=== PATIENT | male | born 1980 | race Two or more races ===

== ENCOUNTER → 2020-08-11 15:15 | Outpatient (BNVA) | payer OTHER, SELFPAY | PROVIDERS: Visit Provider Surgery ==

== ENCOUNTER 2020-08-25 09:04 | Day surgery (SDC) | payer OTHER, SELFPAY ==
[2020-08-20 09:46] VITALS: BMI 27.8
--- NOTE | 2020-08-24 10:44 | HO.ANESPROP2 ---
Documented by User: Natalie Medeiros 08/24/20 10:49 HPI - Anesthesia Eval Consult details Narrative: 39yo M for Left Debridement & Excision of Groin and Perineal Area Hidradenitis Suppurativa PMFSH Active Problems Active Problems: All Active Problems (Updated 08/11/20 @ 15:41 by Herbert Michelle MD) Hidradenitis suppurativa (Acute) Past Medical History Medical History Hidradenitis suppurativa Surgical History Surgical History History of axillary surgery Social History Social History Alcohol intake: never Smoking Status: Current every day smoker Advance Directives Information Provided: No Meds Allergies Allergy/AdvReac Type Severity Reaction Status Date / Time No Known Allergies Allergy Verified 08/25/20 09:32 Home Medications Medication Instructions Recorded Confirmed Last Taken Type No Known Home Meds 08/11/20 08/20/20 Unknown History Exam Exam Date and Time: August 24, 2020 1044 Height,Weight and Vital Signs: Height 5 ft 10 in Weight 88 kg Assessment and Plan Assessment Anesthesia Assessment: Chart Reviewed Documented by User: Lissette Chase 08/25/20 11:53 PMFSH Past Medical History Medical History Hidradenitis suppurativa Surgical History Surgical History History of axillary surgery Social History Social History Alcohol intake: never Smoking Status: Current every day smoker Advance Directives Information Provided: No Meds Allergies Allergy/AdvReac Type Severity Reaction Status Date / Time No Known Allergies Allergy Verified 08/25/20 09:32 Home Medications Medication Instructions Recorded Confirmed Last Taken Type No Known Home Meds 08/11/20 08/20/20 Unknown History Exam Airway Mallampati Class: II TM Dist: >3cm Neck ROM: Full Assessment and Plan Assessment Anesthesia Assessment: Anesthesia Plan Discussed and Chart Reviewed Final Anesthetic Review NPO: Yes ASA Class: I Final Preanesthetic Review: No Changes in Pt Med Stat, Meds/Allgs Chart Reviewed, Consent Obtained/Reviewed and Anes Risks/Benef Reviewed Patient Risk: Low Procedure Risk: Low Assessment/Block/Sedation in SS: Assess/Block/Sedation-SS Anesthetic Plan Anesthetic Plan: GA Disposition: Standard PACU
[2020-08-25] VITALS (9 sets, daily range): BP systolic 114–138; BP diastolic 62–94; PULSE 61–80; RESP 16–19; TEMP 36.4–36.8; O2SAT 97–100
[2020-08-25] MEDS: Lactated Ringers 1,000 ML 100 ML IVCONT (10:02)
--- NOTE | 2020-08-25 11:10 | MHC.SHP ---
Pre-Procedural Eval Section B Chief Complaint: Hidradenitis suppurativa Allergies: Allergies Allergy/AdvReac Type Severity Reaction Status Date / Time No Known Allergies Allergy Verified 08/25/20 09:32 Plan I have reviewed the history and physical and performed a pertinent physical examination on my patient. No changes have occurred unless specified.
--- NOTE | 2020-08-25 12:40 | W.PM.OPN ---
Operative Note Operative Note Date of Service: 08/25/20 Narrative: Preop diagnosis: Hidradenitis suppurativa, left perianal and left scrotal area Postop diagnosis: Hidradenitis suppurative left perianal and left scrotal area Procedure: Excision of hidradenitis suppurative left perianal and left scrotal area Surgeon: Herbert Michelle MD The patient is a 39-year-old male who was had a longstanding history of recurrent swelling and drainage in the left perianal area anteriorly scrotum and the indurated areas as noted above were seen. He does have a history of hidradenitis and says he has had excision about 18 years ago when he was much younger. He said he required frequent dressing changes for an open wound at that time. Examination in the office had shown an indurated area in the left perianal region anteriorly with a sinus. A similar air was noted in the scrotal skin on the left are He wanted this removed in view of his frequent pain and swelling and drainage for many years now. He was aware of the risks, benefits and alternatives He was brought to the operating room placed in modified lithotomy position under general anesthesia via laryngeal mask airway. The perianal area as well as the perineal area were prepped and draped in usual sterile fashion. A surgical time-out was done. I then examined the perianal area on the left side anteriorly as well as the left scrotum which showed the indurated areas as described above. I marked the planned line of incisions. I then made an incision on the left perianal area anteriorly around the area of the induration using a blade 15. This was carried down through the full-thickness of the skin and subcutaneous fat with electrocautery. I excised the entire indurated area including all sinuses and diseased appearing subcutaneous tissue. This was sent as specimen with the open area was about 7 cm long and about 3.5 cm wide. There was note of oozing areas which I had to cauterize. Multiple applications of a electro cautery was done because of this bleeding. Eventually was able to achieve hemostasis. I did undermine both sides of the incision to create flaps and allow closure without tension. I then used a nylon 2-0 stitch to reappose the skin and subcutaneous layer, alternating with simple interrupted sutures as well as vertical mattress sutures. I then proceeded to do the excision on the scrotal area. I marked the plan of excision and made an incision in an elliptical fashion around the indurated area using blade 15. This was carried down through the full thickness of the skin and part of subcutaneous layer. I excised the entire indurated area and sinuses with this. I made certain that we were not entering the scrotal sac by staying within the plane of the subcutaneous layer. I excised as much of the indurated areas and the sinuses. The excision area was about 3 cm by about 2 cm. I closed this with multiple nylon 3-0 interrupted sutures. Once hemostasis was ensured I proceeded to apply dressings. The procedure was completed. The patient tolerated well. There were no immediate complications. Initial and final counts of sponges and instruments were correct. Estimated blood loss about 75 cc The patient was extubated without difficulty and transferred to the recovery room with stable vital signs.
--- NOTE | 2020-08-25 12:48 | PM.OP ---
Brief Operative Note Date of Service: 08/25/20 Pre-op diagnosis: Hidradenitis suppurativa, left anterior perianal area and left scrotum Post-op diagnosis: same Procedure: Excision of hidradenitis suppurativa, left anterior perianal area and scrotum Surgeon: Herbert Michelle MD Anesthesia: GLMA Estimated blood loss (mL): 75 Pathology: other (Hidradenitis suppurativa) Condition: stable Disposition: PACU
[2020-08-25] MEDS: fentaNYL citrate/PF 100 MCG/2 ML VIAL 50 MCG IVPUSH (12:51)
[2020-08-25] MEDS: oxyCODONE HCl Immed Release 5 MG TABLET PO (13:09)
== END 2020-08-25 13:57 | disposition home or self-care (01) ==
PROVIDERS: Visit Provider Surgery
PROC: (CPT 11470; principal; 2020-08-25 10:50)
DX: L73.2 Hidradenitis suppurativa (principal); N49.2 Inflammatory disorders of scrotum
CPT/HCPCS: 11470; 11423; 88305; J0131; J0690; J1100; J1885; J2250; J2405; J3010

== ENCOUNTER 2020-09-02 08:32 | Emergency (ER) | payer OTHER, SELFPAY ==
--- NOTE | ~2020-09-02 | CT_ITS ---
EXAMINATION: CT PELVIS WITH CONTRAST CLINICAL INFORMATION: Status post groin abscess drainage, pain. Question new abscess COMPARISON: None TECHNIQUE: Helical scanning was performed with submillimeter collimation through the pelvis with the use of oral contrast and during bolus intravenous injection of 100 mL of Omnipaque 350 intravenous contrast. Sagittal and coronal multiplanar 2-D reconstructions were obtained. This CT examination was performed using dose optimization techniques as appropriate, variously including the following: *Automated exposure control *Adjustment of mA and/or kV according to patient size (this includes techniques or standardized protocols for targeted exams where dose is matched to indication/reason for exam; i.e. extremities or head) *Use of iterative reconstruction technique DLP: 315 mGy-cm FINDINGS: PELVIS: The bowel gas pattern is nonspecific. Appendix is normal. The urinary bladder is nondistended. There is no free air or free fluid. No abnormal pelvic lymph nodes seen. There is no visible abscess or mass seen in the groin. OSSEOUS STRUCTURES: There is no lytic or sclerotic process. CT/CT pelvis w con IMPRESSION: No evidence of abscess or abnormal inguinal lymph node or mass.
--- NOTE | ~2020-09-02 | US_ITS ---
EXAMINATION: US VENOUS ULTRASOUND WITH DOPPLER LOWER EXTREMITY, LEFT CLINICAL INFORMATION: Pain status post surgery COMPARISON: None TECHNIQUE: Ultrasound of the deep veins is performed from the hip to the calf with compression sonography and color and pulse Doppler assessment. Spectral analysis with color-flow imaging is performed. FINDINGS: There is normal venous compression and respiratory variation and augmented flow. The visualized common femoral vein, superficial femoral vein, profunda femoral vein, popliteal vein, and the trifurcation region shows no evidence of deep venous thrombosis. There is no significant popliteal fossa cyst. No popliteal artery aneurysm If the patient's symptoms persist, followup ultrasound in 5 days 7 days might be of value to exclude proximal propagation from a non-visualized calf vein. US/US venous duplex LE LT IMPRESSION: No acute DVT demonstrated in the left lower extremity.
--- NOTE | ~2020-09-02 | US_ITS ---
EXAMINATION: US SCROTUM CLINICAL INFORMATION: Left perianal scrotal hidradenitis. Excision 08/25/2020. COMPARISON: Ultrasound left lower extremity with Doppler 09/02/2020. TECHNIQUE: A sonogram of the scrotum was performed assessing ramirez-scale appearance and color Doppler flow. Spectral Doppler analysis of the arterial and venous flow were performed in the testes bilaterally. FINDINGS: RIGHT: Right testicle measures 4.2 x 2.5 x 2.8 cm, volume 15.4 mL. There is no intratesticular solid mass or abscess. There is a tiny intratesticular cyst under 2 mm. There is normal bilateral symmetric color Doppler and normal low resistance arterial waveform. Normal intratesticular venous flow also demonstrated. No torsion. The right epididymal head is unremarkable other than a tiny cyst only 1 mm. No hydrocele or varicocele. LEFT: Left testicle measures 4.2 x 2.5 x 2.9 cm, volume 15.9 mL. No focal testicular parenchymal lesions are visualized. There is normal bilateral symmetric color Doppler and normal low resistance arterial waveform. Normal intratesticular venous flow also demonstrated. No torsion. The left epididymal head is unremarkable other than a tiny cyst only 5 x 3 mm. No hydrocele or varicocele. US/US scrotum doppler IMPRESSION: 1. No testicular mass, abscess, or hydrocele. No torsion. 2. Small bilateral epididymal head cysts, left 5 mm, right [address] pelvis with contrast also performed, described in separate report.
--- NOTE | ~2020-09-02 | US_ITS ---
US SCROTUM CLINICAL INFORMATION: Left perianal scrotal hidradenitis. Excision 08/25/2020. COMPARISON: Ultrasound left lower extremity with Doppler 09/02/2020. TECHNIQUE: A sonogram of the scrotum was performed assessing ramirez-scale appearance and color Doppler flow. Spectral Doppler analysis of the arterial and venous flow were performed in the testes bilaterally. FINDINGS: RIGHT: Right testicle measures 4.2 x 2.5 x 2.8 cm, volume 15.4 mL. There is no intratesticular solid mass or abscess. There is a tiny intratesticular cyst under 2 mm. There is normal bilateral symmetric color Doppler and normal low resistance arterial waveform. Normal intratesticular venous flow also demonstrated. No torsion. The right epididymal head is unremarkable other than a tiny cyst only 1 mm. No hydrocele or varicocele. LEFT: Left testicle measures 4.2 x 2.5 x 2.9 cm, volume 15.9 mL. No focal testicular parenchymal lesions are visualized. There is normal bilateral symmetric color Doppler and normal low resistance arterial waveform. Normal intratesticular venous flow also demonstrated. No torsion. The left epididymal head is unremarkable other than a tiny cyst only 5 x 3 mm. No hydrocele or varicocele. US/US scrotum IMPRESSION: 1. No testicular mass, abscess, or hydrocele. No torsion. 2. Small bilateral epididymal head cysts, left 5 mm, right [address] pelvis with contrast also performed, described in separate report.
[2020-09-02 08:51] VITALS: BP 128/86; PULSE 80; RESP 16; TEMP 36.8; O2SAT 98; BMI 28.0
--- NOTE | 2020-09-02 09:56 | ED_ITS ---
HPI - General Adult General Chief complaint: Wound/Laceration Stated complaint: wound check Time Seen by Provider: 09/02/20 09:41 Source: patient Mode of arrival: ambulatory Limitations: no limitations History of Present Illness HPI narrative: Patient presents to ED for severe pain at site of surgery. Patient states he had surgery last week to drain abscess in his groin and now area of sutures ( left groin/perineum) is very tender to palpation. Patient states no relief with Motrin or Tylenol. Patient states not able to take oxycodone due to it making him hallucinate. Patient denies any recent trauma to the groin area. Related Data Previous Rx's Medication Instructions Recorded ibuprofen 600 mg PO Q6H PRN #30 tab 08/25/20 ibuprofen 600 mg PO Q6H PRN #30 tab 08/25/20 oxycodone-acetaminophen [Percocet] 1 - 2 tab PO Q4-6H PRN #30 tab 08/25/20 oxycodone-acetaminophen [Percocet] 1 - 2 tab PO Q4-6H PRN #30 tab 08/25/20 ketorolac 10 mg PO Q6H PRN 5 Days #20 tab 09/02/20 Allergies Allergy/AdvReac Type Severity Reaction Status Date / Time No Known Allergies Allergy Verified 08/25/20 09:32 Review of Systems Review of Systems: Yes all other systems are reviewed and are negative Constitutional: Constitutional: Reports as per HPI and Reports no additional constitutional complaints Eyes: Eyes: Reports as per HPI and Reports no additional eye complaints ENT: Reports system reviewed and no additional complaints, except as documented and Reports as per HPI Cardiovascular: Cardiovascular: Reports as per HPI and Reports no additional cardiovascular complaints Respiratory: Respiratory: Reports as per HPI and Reports no additional respiratory complaints Gastrointestinal: Gastrointestinal: Reports no additional gastrointestinal complaints Genitourinary: Genitourinary: Reports no additional male genitourinary complaints and Reports as per HPI Musculoskeletal: Musculoskeletal: Reports no additional musculoskeletal complaints and Reports as per HPI Comments: Left groin pain at site of ness rgery Neurologic: Reports system reviewed and no additional complaints, except as documented and Reports as per HPI Psychiatric: Psychiatric: Reports no additional psychiatric complaints and Reports as per HPI [facility] Past Medical History Medical History Hidradenitis suppurativa Surgical History History of axillary surgery Social History Social History Alcohol intake: never Smoking Status: Current every day smoker Advance Directives: Yes Advance Directives Information Provided: Yes Advance Directives on File: No Physical Exam Vital Signs: Vital Signs: Last Vital Signs Temp 98.2 F 09/02/20 08:51 Pulse 80 09/02/20 08:51 Resp 16 09/02/20 08:51 BP 128/86 09/02/20 08:51 Pulse Ox 98 09/02/20 08:51 Body Mass Index 28.0 Const: General: cooperative, healthy appearing, comfortable, no acute distress, well developed, alert, awake and acute distress Orientation/consc iousness: patient oriented x3 HENMT: Head: Yes normal to inspection, Yes No palpable skull fracture present, Yes normocephalic and Yes atraumatic Eyes: General: appearance normal, both eyes and all related structures Neck: Neck: Yes normal visual inspection, Yes full ROM, Yes no lymphadenopathy, Yes no meningeal signs, Yes trachea midline, Yes supple and No tender Chest: Chest palpation & inspection: normal inspection of the chest and normal palpation of entire chest wall Resp: Effort & Inspection: normal respiratory effort and able to speak in com plete sentences Auscultation: clear to auscultation bilaterally Cardio: Jugular venous distension: no JVD Heart sounds: S1 normal heart sound present and S2 normal heart sound present GI: Other: Left groin: Patient has sutures left groin/perineal incision with sutures. Wound area negative for any erythema, pus discharge, or foul odor. Positive for severe tenderness. Negative for tenderness of left testicle. Negative for swelling of left testicle. Negative for erythema around left testicle. Positive for tenderness on palpation of anterior medial thigh near left perineal area. Left lower extremity negative for swelling. Inspection: Yes normal to inspection and No abdominal wall ecchymosis Palpation (GI): Soft to palpation, not firm, nontender, no guarding and not rigid : General: No CVA tenderness and Yes no CVA tenderness Scrotum: scrotum normal, no ecchymosis, not edematous, not erythematous, no masses and no scrotal swelling Testes: Testes normal, testicular lie normal, tesicle present, no testicular mass, no testicular swelling and no testicular tenderness Back/Spine/Pelvis: Back: no CVA tenderness, No CVA tenderness and No back tenderness Skin: General skin exam: no rashes or lesions noted and elasticity normal Neuro: General: patient oriented x3, no meningeal signs and CN's II-XI intact bilaterally Cranial nerves: Yes CN's II-XII intact bilaterally Extrem: General: Yes normal to inspection and Yes full ROM Psych: Appearance: grossly normal, well kempt and not disheveled Course Course Course Narrative: Wound area does not look infected. Patient chart was reviewed and shows that he had hidradenitis suppurative drainage with sinus tracts. Due to patient having severe pain in the area will do repeat CT scan to the there is a new trach abscess drainage. Due to anterior thigh tenderness to palpation status post surgery will do ultrasound rule out DVT. Labs ordered Reevaluation(s) Reevaluation #1: Patient's left lower extremity ultrasound negative for DVT. Scrotum ultrasound negative for abscess, torsion, or perforation. CT scan of the pelvis negative for any new abscess, perforation, swollen lymph node, or free air. Patient just need pain control. Wound negative for signs of wound infection. There is no redness, no pus discharge, no foul odor. Patient states IV Toradol helped so patient will be discharged with Toradol p.o.. Patient informed to follow-up with the Dr. Michelle. Medical Decision Making [facility] Narrative Medical decision making narrative: Wound check Lab Data Result diagrams: 09/02/20 09:58 09/02/20 09:58 Labs: Lab Results 09/02/20 09/02/20 09/02/20 Range/Units 09:58 09:58 09:58 WBC 9.2 (4.8-10.8) X10*3/uL RBC 4.27 L (4.60-5.80) X10*6/uL Hgb 13.1 L (14.0-18.0) g/dl Hct 39.5 L (42-52) % MCV 92.5 (80-98) fL MCH 30.7 (27.0-33.0) pg MCHC 33.2 (31.0-36.0) g/dl RDW 12.8 (11.0-16.0) % Plt Count 200 (160-400) X10*3/uL MPV 9.2 L (9.4-12.4) fL Immature Gran % (Auto) 0.2 (0.0-0.4) % Neut % (Auto) 64.4 (45-73) % Lymph % (Auto) 24.9 (20-40) % Price % (Auto) 7.0 (2-11) % Eos % (Auto) 3.1 (0-4) % Baso % (Auto) 0.4 (0-2) % Lymph # (Auto) 2.3 (1.2-4.9) X10*3/uL Price # (Auto) 0.6 (0.1-1.2) X10*3/uL Eos # (Auto) 0.3 (0.0-0.4) X10*3/uL Baso # (Auto) 0.0 (0.0-0.2) X10*3/uL Abs Immat Gran (auto) 0.02 (0.00-0.03) X10*3/uL Absolute Neuts (auto) 5.9 (2.0-8.3) X10*3/uL Absolute Nucleated RBC 0.000 (0.0-0.012) X10*3/uL Nucleated RBC % (auto) 0.0 (0.0-0.2) /100WBC PT 12.6 (10.8-13.0) SEC INR 1.1 (0.9-1.1) APTT 34.6 (24.1-38.0) SEC Sodium 137 (135-145) mmol/L Potassium 4.5 (3.3-5.1) mmol/L Chloride 108 (96-108) mmol/L Carbon Dioxide 24 (22-29) mmol/L Anion Gap 10 L (12-20) BUN 14 (9-16) mg/dL Creatinine 0.81 (0.5-1.4) mg/dL Estim Creat Clear Calc 138.5 Estimated GFR > 60 Random Glucose 93 (60-115) mg/dL Calcium 8.9 (8.4-10.2) mg/dL Total Bilirubin 0.5 (0.0-1.0) mg/dL AST 13 (5-37) U/L ALT 20 (0-40) U/L Alkaline Phosphatase 98 (39-117) U/L Total Protein 6.2 L (6.5-8.0) g/dL Albumin 3.8 (3.5-5.0) g/dL Discharge Plan Discharge Clinical Impression: Encounter for post surgical wound check Patient Disposition: Home, Self-Care Instructions: Normal Exam (ED), Hidradenitis Suppurativa (ED) Additional Instructions: Return to the ED immediately for pus discharge, foul odor, redness, fever, chills, swelling of left lower extremity, testicular pain, chest pain, shortness of breath, or any other concerning symptoms. Your leg ultrasound came back negative for blood clot. Testicular ultrasound negative for abscess, torsion, o r perforation. CT scan of pelvis negative for any new abscess, swollen lymph node, or perforation. Prescriptions: New ketorolac 10 mg tablet 10 mg PO Q6H PRN (Reason: pain) 5 Days Qty: 20 RF: 0 No Action oxycodone-acetaminophen [Percocet] 5-325 mg tablet 1 - 2 tab PO Q4-6H PRN (Reason: pain) Qty: 30 RF: 0 ibuprofen 600 mg tablet 600 mg PO Q6H PRN (Reason: pain) Qty: 30 RF: 0 oxycodone-acetaminophen [Percocet] 5-325 mg tablet 1 - 2 tab PO Q4-6H PRN (Reason: pain) Qty: 30 RF: 0 ibuprofen 600 mg tablet 600 mg PO Q6H PRN (Reason: pain) Qty: 30 RF: 0 Referrals: Herbert Michelle MD [Physician] - 2 days (Status post hidraenitis suppurativa surgery. Presented to the ED with pain. Ultrasound of leg negative for blood clot. Testicular ultrasound negative for abscess, perforation, or torsion. CT scan of pelvis negative for any new abscess collection, perforation, or swollen lymph nodes.) Stand Alone Forms: Work/School Release Interventions: ED Discharge Assessment Last Done: 09/02/20 12:53 Discharge Date/Time: 09/02/20 12:54 Print Language: Slovak
[2020-09-02] MEDS: Ketorolac Tromethamine 30 MG/ML VIAL IVPUSH (10:02)
[2020-09-02] MEDS: 0.9 % Sodium Chloride 1,000 ML 999 ML IV (10:03)
[2020-09-02 10:04] LABS: MANUAL DIFF FLAG NO
[2020-09-02 10:06] LABS: Basophils Percent Auto 0.4 % (0-2); Eosinophils Absolute Auto 0.3 X10*3/uL (0.0-0.4); Eosinophils Percent Auto 3.1 % (0-4); Hematocrit 39.5 % (42-52); Hemoglobin 13.1 g/dl (14.0-18.0); Imm Gran Abs Auto 0.02 X10*3/uL (0.00-0.03); Imm Gran Pct Auto 0.2 % (0.0-0.4); Lymphocytes Absolute Auto 2.3 X10*3/uL (1.2-4.9); Lymphocytes Percent Auto 24.9 % (20-40); Mean Corpuscular HGB Conc 33.2 g/dl (31.0-36.0); Mean Corpuscular Hemoglobin 30.7 pg (27.0-33.0); Mean Corpuscular Volume 92.5 fL (80-98); Mean Platelet Volume 9.2 fL (9.4-12.4); Monocytes Absolute Auto 0.6 X10*3/uL (0.1-1.2); Neutrophils Absolute Auto 5.9 X10*3/uL (2.0-8.3); Neutrophils Percent Auto 64.4 % (45-73); Platelet Count 200 X10*3/uL (160-400); Red Blood Count 4.27 X10*6/uL (4.60-5.80); Red Cell Distribution Width 12.8 % (11.0-16.0); White Blood Count 9.2 X10*3/uL (4.8-10.8)
[2020-09-02 10:11] LABS: INTERNATIONAL NORM RATIO 1.1 (0.9-1.1); Prothrombin Time 12.6 SEC (10.8-13.0)
[2020-09-02 10:13] LABS: Partial Thromboplastin Time 34.6 SEC (24.1-38.0)
--- NOTE | 2020-09-02 10:26 | PC.NURSE ---
IV ESTABLISHED, BLOOD LABS OBTAINED AND SENT, MEDICATED PER EMAR, TAKEN TO US VIA STRETCHER.
[2020-09-02 10:35] LABS: Alanine Aminotransferase 20 U/L (0-40); Albumin Level 3.8 g/dL (3.5-5.0); Alkaline Phosphatase 98 U/L (39-117); Anion Gap 10 (12-20); Aspartate Amino Transferase 13 U/L (5-37); Bilirubin Total 0.5 mg/dL (0.0-1.0); Blood Urea Nitrogen 14 mg/dL (9-16); Calcium 8.9 mg/dL (8.4-10.2); Carbon Dioxide 24 mmol/L (22-29); Chloride 108 mmol/L (96-108); Creatinine Clr Calc Pharmacy 138.5; Estimated Glomerular Filt Rate > 60; Glucose Random 93 mg/dL (60-115); Potassium 4.5 mmol/L (3.3-5.1); Sodium 137 mmol/L (135-145); Total Protein 6.2 g/dL (6.5-8.0)
--- NOTE | 2020-09-02 11:09 | PC.NURSE ---
PT STS PAIN IS MUCH BETTER, STS WHATEVER YOU GAVE ME, I WANT TO GO HOME WITH .
[2020-09-02] MEDS: iohexoL 350 MG/ML 100 ML INFUS..BTL 85 ML IV (11:35)
== END 2020-09-02 12:54 | disposition home or self-care (01) ==
PROVIDERS: Physician Assistant; Emergency Provider Emergency Medicine
DX: L73.2 Hidradenitis suppurativa (principal); R60.0 Localized edema; Z48.00 Encounter for change or removal of nonsurgical wound dressing; F17.200 Nicotine dependence, unspecified, uncomplicated; Z71.6 Tobacco abuse counseling
CPT/HCPCS: 36415; 72193; 76870; 80053; 85025; 85610; 85730; 93971; 93975; 96365; 96372; 96375; 99284; J1885; Q9967

== ENCOUNTER → 2020-09-09 09:57 | Outpatient (BNVA) | payer OTHER, SELFPAY | PROVIDERS: Visit Provider Surgery ==

== ENCOUNTER → 2020-10-08 09:57 | Outpatient (BNVA) | payer OTHER, SELFPAY | PROVIDERS: Visit Provider Surgery ==

== ENCOUNTER → 2021-02-17 15:38 | Outpatient (BNVA) | payer OTHER, SELFPAY | PROVIDERS: Visit Provider Surgery ==

== ENCOUNTER 2021-03-02 10:56 | Day surgery (SDC) | payer OTHER, SELFPAY ==
--- NOTE | 2021-03-01 11:44 | HO.ANESPROP2 ---
Documented by User: Natalie Medeiros NP 03/01/21 11:46 HPI - Anesthesia Eval Consult details Narrative: 40yo M for Left Excision of Axillary Hidradenitis Suppurativa s/p same with GA-LMA 5 PMFSH Active Problems Active Problems: All Active Problems (Updated 09/03/20 @ 00:00 by Chet Gupta) Hidradenitis suppurativa (Acute) Past Medical History Medical History (Updated 03/02/21 @ 11:07 by Savannah French RN) Hidradenitis suppurativa Migraine Surgical History Surgical History History of axillary surgery Hx of surgical procedure Social History Social History Alcohol intake: never Patient Tobacco Use Status: Current everyday Tobacco user Tobacco use type: Cigarette Cigarettes Per Day: 5 Meds Allergies Allergy/AdvReac Type Severity Reaction Status Date / Time No Known Allergies Allergy Verified 03/02/21 11:07 Exam Exam Date and Time: March 01, 2021 1144 Pertinent Lab Results Pertinent Lab Results: Laboratory Tests 09/02/20 09/02/20 09:58 09:58 WBC 9.2 Hgb 13.1 L Hct 39.5 L Plt Count 200 Sodium 137 Potassium 4.5 Chloride 108 Carbon Dioxide 24 BUN 14 Creatinine 0.81 Assessment and Plan Assessment Anesthesia Assessment: Chart Reviewed Documented by User: Camron Duran MD 03/02/21 17:19 [facility] Past Medical History Medical History (Updated 03/02/21 @ 11:07 by Savannah French RN) Hidradenitis suppurativa Migraine Family History Family history of problems with anesthesia: No Surgical History Surgical History History of axillary surgery Hx of surgical procedure History of Problems with Anesthesia: No Social History Social History Alcohol intake: never Patient Tobacco Use Status: Current everyday Tobacco user Tobacco use type: Cigarette Cigarettes Per Day: 5 Meds Allergies Allergy/AdvReac Type Severity Reaction Status Date / Time No Known Allergies Allergy Verified 03/02/21 11:07 Exam Airway Mallampati Class: II TM Dist: >3cm Neck ROM: Full Loose/Missing/Broken Teeth: No Assessment and Plan Assessment Anesthesia Assessment: Anesthesia Plan Discussed Final Anesthetic Review Family History of Problems with Anesthesia: No History of Problems with Anesthesia: No NPO: Yes ASA Class: II Final Preanesthetic Review: No Changes in Pt Med Stat, Meds/Allgs Chart Reviewed, Consent Obtained/Reviewed and Anes Risks/Benef Reviewed Patient Risk: Low Procedure Risk: Low Anesthetic Plan Anesthetic Plan: GA Disposition: Standard PACU
[2021-03-02] VITALS (8 sets, daily range): BP systolic 110–132; BP diastolic 66–83; PULSE 67–87; RESP 16; TEMP 36.1–36.7; O2SAT 96–97; BMI 27.8
[2021-03-02] MEDS: Lactated Ringers 1,000 ML 100 ML IVCONT (11:32)
--- NOTE | 2021-03-02 13:36 | MHC.SHP ---
Pre-Procedural Eval Section A Date of Service: 03/02/21 Section B Chief Complaint: Hidradenitis suppurativa Allergies: Allergies Allergy/AdvReac Type Severity Reaction Status Date / Time No Known Allergies Allergy Verified 03/02/21 11:07 Plan I have reviewed the history and physical and performed a pertinent physical examination on my patient. No changes have occurred unless specified.
--- NOTE | 2021-03-02 14:19 | P.OP_ITS ---
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 This was consistent with active hidradenitis suppurativa. He had previously undergone excision of hidradenitis from the left groin as well in the past He wanted to proceed with excision of this disease tissue on the left axilla. He understood the technique as well as the risks, benefits, and alternatives. He was brought to the operating room placed supine with the left arm abducted to expose the left axilla. The left axilla was prepped and draped in usual sterile fashion. He was placed in general anesthesia via laryngeal mask airway. I infiltrated the planned line of incision using lidocaine 1%. The area of active hidradenitis on left axilla was noted with multiple sinuses that appeared to be interconnecting, and induration. The diseased area of was about 9 cm long by about 3 cm wide. I then made an incision using blade 15 around the area of induration elliptically. I then deepened this incision using a cautery. I then proceeded to dissect around this area of induration in the subcutaneous layer making sure that we were including soft tissue. I continued to dissect all of the indurated tissue, along with interconnecting sinuses with electrocautery. I sent this specimen for pathology. The area of excision was about 9 cm long by 4 cm wide. I copiously irrigated. I cauterized oozing areas for hemostasis. Once hemostasis was ensured, I reapposed the subcutaneous layer with Dexon 3-0 interrupted sutures. Skin closure was achieved with nylon 3-0 simple interrupted sutures along with vertical mattress sutures as well. The area was then infiltrated with Marcaine 0.5% for postop analgesia and the procedure was completed The patient tolerated procedure well. There were no complication noted. Initial and final counts of sponges and instruments were correct. Estimated blood loss was about 15 cc The patient was extubated without difficulty and transferred to the recovery room with stable vital signs.
== END 2021-03-02 15:57 | disposition home or self-care (01) ==
PROVIDERS: Visit Provider Surgery
PROC: (CPT 11450; principal; 2021-03-02 12:40)
DX: L73.2 Hidradenitis suppurativa (principal); Z79.899 Other long term (current) drug therapy
CPT/HCPCS: 11450; 88305; J0690; J1100; J1170; J2250; J2405; J3010

== ENCOUNTER 2022-01-14 09:31 | Outpatient (REF) | payer OTHER, SELFPAY ==
[2022-01-14 10:45] LABS: Hemoglobin 14.5 g/dl (14.0-18.0); Mean Corpuscular HGB Conc 33.7 g/dl (31.0-36.0); Mean Corpuscular Hemoglobin 30.7 pg (27.0-33.0); Mean Corpuscular Volume 90.9 fL (80.0-98.0); Mean Platelet Volume 9.5 fL (9.4-12.4); Platelet Count 216 X10*3/uL (160-400); Red Blood Count 4.73 X10*6/uL (4.60-5.80); Red Cell Distribution Width 13.3 % (11.0-16.0); White Blood Count 8.6 X10*3/uL (4.8-10.8)
[2022-01-14 11:16] LABS: Alanine Aminotransferase 23 U/L (0-40); Albumin Level 4.1 g/dL (3.5-5.0); Alkaline Phosphatase 120 U/L (39-117); Anion Gap 13 (12-20); Aspartate Amino Transferase 15 U/L (5-37); Bilirubin Total 0.5 mg/dL (0.0-1.0); Blood Urea Nitrogen 14 mg/dL (9-16); Calcium 8.7 mg/dL (8.4-10.2); Carbon Dioxide 24 mmol/L (22-29); Chloride 107 mmol/L (96-108); Cholesterol 220 mg/dL; Estimated Glomerular Filt Rate > 60; Glucose Random 93 mg/dL (60-115); HDL Cholesterol 24 mg/dL; LDL Cholesterol Calculated 165 mg/dl; Potassium 4.3 mmol/L (3.3-5.1); Sodium 140 mmol/L (135-145); Total Protein 6.8 g/dL (6.5-8.0); Triglycerides 159 mg/dL
[2022-01-14 11:27] LABS: Prostate Specific Antigen 0.53 ng/mL (<0.05-4.0); Thyroid Stimulating Hormone 1.13 uIU/mL (0.32-4.0); Vitamin D 25-OH Total 17.1 ng/mL (>30)
[2022-01-20 23:47] LABS: Estradiol Free 0.62 pg/mL; Estradiol, Ultrasensitive 29 pg/mL (< OR = 29)
[2022-01-21 08:42] LABS: Testosterone, Total 478 ng/dL (250-1100)
== END 2022-01-14 09:32 | disposition home or self-care (01) ==
LOC: HO.LAB 09:31
PROVIDERS: Visit Provider Preventive Medicine Preventive Medicine/Occupational Environmental Medicine
DX: Z12.5 Encounter for screening for malignant neoplasm of prostate (principal); E29.1 Testicular hypofunction; N40.1 Benign prostatic hyperplasia with lower urinary tract symptoms; E55.9 Vitamin D deficiency, unspecified
CPT/HCPCS: 80053; 80061; 82306; 82670; 82681; 84153; 84402; 84403; 84443; 85027

== ENCOUNTER 2022-10-03 17:05 | Outpatient (AMB) | payer OTHER, SELFPAY ==
[2022-10-03 17:07] VITALS: BP 116/68; PULSE 77; O2SAT 98
--- NOTE | 2022-10-03 17:07 | A.OFFPC_ITS ---
Vital Signs 10/03/22 17:07 Height 5 ft 10 in Weight 209 lb 6 oz BMI 30.0 BP 116/68 Blood Pressure Location Rt radial Position Sitting Pulse 77 Pulse Source Pulse Oximeter Pulse Oximetry (%) 98 Oxygen Delivery Method Room Air Intake Visit Reasons: hyperlipidemia, hidradenitis Intake Note: Patient is here to follow up hyperlipidemia and hidradenitis. 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 Accompanied by: Self / Same As Patient Allergies No Known Allergies Allergy (Verified 04/12/23 17:42) Medication List - Last Reconciled 10/03/22 by Tristan Hurtado MD betamethasone dipropionate 0.05% 1 appl topical DAILY doxycycline hyclate 100 mg PO DAILY Tobacco use date assessed: 10/03/22 HPI hyperlipidemia, hidradenitis HPI Details Patient comes in today for his follow up visit States that he feels okay He denies any headaches or dizziness Denies any chest pains, no SOB No nausea/vomiting, no abdominal pain No change in bowel habits noted He was not able to get his follow up labs done prior to his visit today [facility] Medical History Skin lesions Overweight (BMI 25.0-29.9) Vitamin D deficiency Pure hypercholesterolemia Migraine Hidradenitis suppurativa Surgical History History of surgical removal of skin lesion (~10/19/22) Hx of surgical procedure History of axillary surgery Social History Housing: House Alcohol intake: never Patient Tobacco Use Status: Never used Tobacco e-Cigarette/Vaping Use: Never Used Second Hand Smoke Exposure: No service: No Current occupational status: employed (at [employer]) Current occupational exposures/hazards: No Cognitive needs: No Hearing needs: No Vision needs: No Questionnaire PHQ-9 Over the last 2 weeks, how often have you been bothered by any of the following problems? 1. Little interest or pleasure in doing things: not at all 2. Feeling down, depressed, or hopeless: not at all 3. Trouble falling or staying asleep, or sleeping too much: not at all 4. Feeling tired or having little energy: not at all 5. Poor appetite or overeating: not at all 6. Feeling bad about yourself - or that you are a failure or have let yourself or your family down: not at all 7. Trouble concentrating on things, such as reading the newspaper or watching television: not at all 8. Moving or speaking so slowly that other people could have noticed. Or the opposite - being so fidgety or restless that you have been moving around a lot more than usual: not at all 9. Thoughts that you would be better off or of hurting yourself in some way: not at all Total score: 0 Depression Screening Interpretation: Negative 19594 - PHQ-9 Billing: Yes Source: Developed by Drs. Rohit Patel, Brianna Lr, Rey Givens and colleagues, with an educational justyn from [employer]. Thrive Questionnaire Date Thrive assessed: 10/03/22 I am a: Patient What is your living situation today?: I have a steady place to live Within the past 12 months, did the food you bought not last and you didn't have the money to get more?: Never true Within the past 12 months, did you worry whether your food would run out before you got money to buy more?: Never true Do you have trouble paying for medicines?: No Do you have trouble getting transportation to medical appointments?: No Do you have trouble paying your heating and electricity bill?: No Do you have trouble taking care of your child, family member or friend?: No Do you have trouble with day-to-day activities such as bathing, preparing meals, shopping, managing finances, etc.?: No Are you currently unemployed and looking for a job?: No Are you interested in more education?: No Currently or been in a relationship where the following occur: no concerns reported AUDIT C Alcohol Use Questionnaire (AUDIT-C) 1. How often do you have a drink containing alcohol?: Never Total Score: 0 Score Reviewed/Action Taken: Yes HAILEE-7 AMB Questionnaire HAILEE-7 Date HAILEE - 7 assessed: 10/03/22 Feeling nervous, anxious, or on edge: 0 = Not at all Not being able to stop or control worryin = Not at all Worrying too much about different things: 0 = Not at all Trouble relaxin = Not at all Being so restless that it is hard to sit still: 0 = Not at all Becoming easily annoyed or irritable: 0 = Not at all Feeling afraid as if something awful might happen: 0 = Not at all Total HAILEE-7 score (0-4 normal; 5-9 mild; 10-14 moderate; 15-21 severe): 0 Source: Developed by Drs. Rohit Patel, Brianna Lr, Rey Givens and colleagues, with an educational justyn from [employer]. Review of Systems Const Denies chills, Denies fatigue, Denies fever(s) and Denies headache(s) ENT Denies dysphagia, Denies dizziness, Denies otalgia, Denies headache(s), Denies neck pain, Denies odynophagia and Denies sore throat Card Denies chest pain, Denies palpitations and Denies dyspnea Resp Denies cough and Denies dyspnea GI Denies abdominal pain, Denies constipation, Denies dysphagia, Denies heartburn, Denies diarrhea, Denies nausea, Denies odynophagia and Denies vomiting Denies dysuria, Denies nocturia and Denies urinary frequency Musc Denies neck pain Skin/Breast Denies rash Neuro Denies dizziness and Denies headache(s) Endo Denies fatigue and Denies palpitations Physical exam (Primary Care) Vital Signs: Last Vital Signs Pulse 77 10/03/22 17:07 BP 116/68 10/03/22 17:07 Pulse Ox 98 10/03/22 17:07 Oxygen Delivery Method Room Air 10/03/22 17:07 BMI result Body Mass Index 30.0 Tobacco/Smoking Status: Tobacco use Status Tobacco use date assessed 10/03/22 10/03/22 17:11 Patient Tobacco Use Status Never used Tobacco 10/03/22 17:11 Tobacco use type 09/22/22 22:01 e-Cigarette/Vaping Use Never Used 10/03/22 17:11 PHQ-9: PHQ-9 Score PHQ-9: Total score 0 10/03/22 17:53 Depression Screening Interpretation: Negative Thrive Assessment: Date of Thrive Assessment Date Thrive assessed 10/03/22 10/03/22 17:11 Currently or been in a relationship where the following occur: no concerns reported Const General: no acute distress and alert HENMT Ears: TM's normal bilaterally and EAC's normal Throat: Yes posterior oropharynx normal and Yes tonsils normal (no TP congestion) Neck Neck: Yes no lymphadenopathy and Yes supple Resp Auscultation: clear to auscultation bilaterally, no rales and no wheezes Cardio Rate: regular rate Rhythm: regular rhythm Heart sounds: no murmurs GI Palpation (GI): Soft to palpation, nontender and No hepatosplenomegaly present Skin General skin exam: no rashes or lesions noted Extrem General: Yes no clubbing, cyanosis or edema Assessment and Plan Assessment & Plan (1) Pure hypercholesterolemia: Code(s): E78.00 - Pure hypercholesterolemia, unspecified Plan: Reinforced low cholesterol diet He was not able to get his previously ordered follow up labs done prior to his visit today - have advised him to get these done JANEL as his previous labs done last year revealed (+) elevated cholesterol levels (2) Hidradenitis suppurativa: Code(s): L73.2 - Hidradenitis suppurativa Plan: Patient frequently has recurrence of this issue and required excision of a couple of these lesions about 2 years ago Is currently taking oral Doxycycline 100 mg QD for chronic suppressive Tx (3) Seborrheic dermatitis: Code(s): L21.9 - Seborrheic dermatitis, unspecified Plan: Continue Betamethasone dipropionate 0.05% lotion QD PRN (4) Vitamin D deficiency: Code(s): E55.9 - Vitamin D deficiency, unspecified Plan: Patient is again advised that his Vitamin D level was low on his previous labs and recommend that he start taking OTC Vitamin D3 2000 units QD (5) Overweight (BMI 25.0-29.9): Code(s): E66.3 - Overweight Plan: Reinforced diet/exercise as tolerated/lose weight Plan To return in 6 months for his next annual physical examination Coding Level of Care Code Est Pt Level 3 (81923) Diagnoses Pure hypercholesterolemia E78.00 Hidradenitis suppurativa L73.2 Seborrheic dermatitis L21.9 Vitamin D deficiency E55.9 Overweight (BMI 25.0-29.9) E66.3
== END 2022-10-03 17:58 | disposition home or self-care (01) ==
LOC: HO.HMGH 17:05
PROVIDERS: PCP Internal Medicine; Visit Provider Internal Medicine
DX: E78.00 Pure hypercholesterolemia, unspecified (principal); L73.2 Hidradenitis suppurativa; L21.9 Seborrheic dermatitis, unspecified; E55.9 Vitamin D deficiency, unspecified; E66.3 Overweight
CPT/HCPCS: 99213

== ENCOUNTER → 2022-10-12 10:32 | Outpatient (BNVA) | payer OTHER, SELFPAY | PROVIDERS: PCP Internal Medicine; Visit Provider Surgery ==

== ENCOUNTER 2022-10-19 14:23 | Outpatient (REF) | payer OTHER, SELFPAY | END 2022-10-19 14:24 | disposition home or self-care (01) | LOC: HO.LNP 14:23 | PROVIDERS: PCP Internal Medicine; Referring Provider Internal Medicine; Visit Provider Surgery | DX: L57.0 Actinic keratosis (principal); L81.4 Other melanin hyperpigmentation | CPT/HCPCS: 11401; 11402; 88305 ==

== ENCOUNTER → 2022-11-02 14:28 | Outpatient (BNVA) | payer OTHER, SELFPAY | PROVIDERS: PCP Internal Medicine; Visit Provider Surgery ==

== ENCOUNTER 2023-04-12 16:17 | Outpatient (AMB) | payer OTHER, SELFPAY ==
[2023-04-12 16:20] VITALS: BP 118/72; PULSE 85; O2SAT 97; BMI 29.3
--- NOTE | 2023-04-12 16:20 | A.OFFPC_ITS ---
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 Accompanied by: Self / Same As Patient Allergies No Known Allergies Allergy (Verified 04/12/23 17:42) Medication List - Last Reconciled 04/12/23 by Tristan Hurtado MD betamethasone dipropionate 0.05% 1 appl topical DAILY doxycycline hyclate 100 mg PO DAILY Tobacco use date assessed: 04/12/23 Dental Screening Dental Screen Date: 04/12/23 Did you have a dental visit in the last 12 months?: Yes Did you have a dental problem in the last 6 months where you did not have access to dental care?: No Was dental information given to patient?: Patient has dentist HPI pe HPI Details Patient comes in today for his annual physical examination States that he feels okay He denies any headaches or dizziness Denies any chest pains, no SOB No nausea/vomiting, no abdominal pain No change in bowel habits noted He denies any acute urinary symptoms He's had the previous lesions on his left thigh/groin area and left lower leg removed by Dr. Michelle a few months ago - lesions were benign (lichenoid keratosis and lentigo) Adds that he has been experiencing frequent itching over both lower legs lately but has not noticed any rash over his legs Needs his oral Doxycycline (suppressive Tx for his hidradenitis) and topical steroid Rx refilled Has not had any follow up labs done since last year [facility] Medical History Skin lesions Overweight (BMI 25.0-29.9) Vitamin D deficiency Pure hypercholesterolemia Migraine Hidradenitis suppurativa Surgical History History of surgical removal of skin lesion (~10/19/22) Hx of surgical procedure History of axillary surgery Social History Housing: House Alcohol intake: never Patient Tobacco Use Status: Never used Tobacco e-Cigarette/Vaping Use: Never Used Second Hand Smoke Exposure: No service: No Current occupational status: employed (at [employer]) Current occupational exposures/hazards: No Cognitive needs: No Hearing needs: No Vision needs: No Questionnaire PHQ-9 Over the last 2 weeks, how often have you been bothered by any of the following problems? 1. Little interest or pleasure in doing things: not at all 2. Feeling down, depressed, or hopeless: not at all 3. Trouble falling or staying asleep, or sleeping too much: not at all 4. Feeling tired or having little energy: not at all 5. Poor appetite or overeating: not at all 6. Feeling bad about yourself - or that you are a failure or have let yourself or your family down: not at all 7. Trouble concentrating on things, such as reading the newspaper or watching television: not at all 8. Moving or speaking so slowly that other people could have noticed. Or the opposite - being so fidgety or restless that you have been moving around a lot more than usual: not at all 9. Thoughts that you would be better off or of hurting yourself in some way: not at all Total score: 0 Depression Screening Interpretation: Negative Depression Screening Done: Yes 99158 - PHQ-9 Billing: Yes Source: Developed by Drs. Rohit Patel, Brianna Lr, Rey Givens and colleagues, with an educational justyn from [employer]. Thrive Questionnaire Date Thrive assessed: 04/12/23 I am a: Patient What is your living situation today?: I have a steady place to live Within the past 12 months, did the food you bought not last and you didn't have the money to get more?: Never true Within the past 12 months, did you worry whether your food would run out before you got money to buy more?: Never true Do you have trouble paying for medicines?: No Do you have trouble getting transportation to medical appointments?: No Do you have trouble paying your heating and electricity bill?: No Do you have trouble taking care of your child, family member or friend?: No Do you have trouble with day-to-day activities such as bathing, preparing meals, shopping, managing finances, etc.?: No Are you currently unemployed and looking for a job?: No Are you interested in more education?: No Please select the resources that you would like help with: None Currently or been in a relationship where the following occur: no concerns reported AUDIT C Alcohol Use Questionnaire (AUDIT-C) 1. How often do you have a drink containing alcohol?: Never Total Score: 0 Score Reviewed/Action Taken: Yes HAILEE-7 AMB Questionnaire HAILEE-7 Date HAILEE - 7 assessed: 04/12/23 Feeling nervous, anxious, or on edge: 0 = Not at all Not being able to stop or control worryin = Not at all Worrying too much about different things: 0 = Not at all Trouble relaxin = Not at all Being so restless that it is hard to sit still: 0 = Not at all Becoming easily annoyed or irritable: 0 = Not at all Feeling afraid as if something awful might happen: 0 = Not at all Total HAILEE-7 score (0-4 normal; 5-9 mild; 10-14 moderate; 15-21 severe): 0 Source: Developed by Drs. Rohit Patel, Brianna Lr, Rey Givens and colleagues, with an educational justyn from [employer]. Review of Systems Const Denies chills, Denies fatigue, Denies fever(s), Denies headache(s), Denies malaise and Denies weakness Eyes Denies blurry vision, Denies change in vision, Denies irritation and Denies itchy eyes ENT Denies dysphagia, Denies dizziness, Denies otalgia, Denies headache(s), Denies nasal congestion, Denies neck pain, Denies odynophagia and Denies sore throat Card Denies chest pain, Denies rapid heart rate, Denies irregular heart rhythm, Denies palpitations and Denies dyspnea Resp Denies chest congestion, Denies cough, Denies dyspnea and Denies wheezing GI Denies abdominal pain, Denies bloating, Denies constipation, Denies dysphagia, Denies heartburn, Denies diarrhea, Denies nausea, Denies odynophagia and Denies vomiting Denies hematuria, Denies difficulty urinating, Denies dysuria, Denies urinary frequency and Denies urinary urgency Musc Denies back pain, Denies arthralgias, Denies joint swelling, Denies muscle weakness and Denies neck pain Skin/Breast Denies change in pigmentation, Reports pruritus (recurrent, over both lower legs), Denies lesions, Denies rash and Denies unusual bruising Neuro Denies dizziness, Denies headache(s), Denies paresthesias and Denies weakness Endo Denies fatigue and Denies palpitations Aller/Immun Denies itchy eyes and Denies wheezing Physical exam (Primary Care) Vital Signs: Last Vital Signs Pulse 85 04/12/23 16:20 BP 118/72 04/12/23 16:20 Pulse Ox 97 04/12/23 16:20 Oxygen Delivery Method Room Air 04/12/23 16:20 BMI result Body Mass Index 29.3 Tobacco/Smoking Status: Tobacco use Status Tobacco use date assessed 04/12/23 04/12/23 16:22 Patient Tobacco Use Status Never used Tobacco 04/12/23 16:22 Tobacco use type 09/22/22 22:01 e-Cigarette/Vaping Use Never Used 04/12/23 16:22 PHQ-9: PHQ-9 Score PHQ-9: Total score 0 04/12/23 17:47 Depression Screening Interpretation: Negative Thrive Assessment: Date of Thrive Assessment Date Thrive assessed 04/12/23 04/12/23 16:22 Currently or been in a relationship where the following occur: no concerns reported Const General: no acute distress, alert and awake Orientation/consciousness: patient oriented x3 HENMT Head: Yes normocephalic and Yes atraumatic Ears: external ears normal, TM's normal bilaterally and EAC's normal General nose exam: No nasal discharge present Face and sinus: Yes normal facial exam and Yes sinuses nontender Teeth and gingiva: dentition normal Throat: Yes posterior oropharynx normal and Yes tonsils normal (no TP congestion) Eyes Eyelids: Yes eyelids normal Conjunctivae: conjunctivae normal Pupils: Equal, round and reactive pupils present EOM: EOMs intact bilaterally Neck Neck: Yes no lymphadenopathy and Yes supple Thyroid: Thyroid normal Resp Auscultation: clear to auscultation bilaterally, no rales and no wheezes Cardio Rate: regular rate Rhythm: regular rhythm Heart sounds: no murmurs GI Palpation (GI): Soft to palpation, nontender and No hepatosplenomegaly present Auscultation: normal bowel sounds General: Yes no CVA tenderness Back/Spine/Pelvis Back: no CVA tenderness Thoracic/Lumbar Spine: thoracic and lumbar spine normal to inspection Skin Lesions: no lesions Rashes: no rashes Neuro General: patient oriented x3, moves all extremities, no focal motor deficits and CN's II-XI intact bilaterally Cranial nerves: Yes Equal, round and reactive pupils present Cognition (Neuro): normal cognition Gait exam (Neuro): Normal gait present Extrem General: Yes no clubbing, cyanosis or edema Assessment and Plan Assessment & Plan (1) Annual physical exam: Code(s): Z00.00 - Encounter for general adult medical examination without abnormal findings Plan: Check labs JANEL He has no increased risk factors for cancer and has no pertinent acute symptoms so routine cancer screenings are not yet indicated in this patient at present (2) Pure hypercholesterolemia: Code(s): E78.00 - Pure hypercholesterolemia, unspecified Plan: Patient is cautioned/reminded that his cholesterol level was elevated on his labs done last year Reinforced low cholesterol diet Will recheck his fasting lipids JANEL for follow-up (3) Hidradenitis suppurativa: Code(s): L73.2 - Hidradenitis suppurativa Plan: Patient has had frequent recurrence of cutaneous infections/lesions and required excision of a couple of these lesions sometime in the past year or two Continue oral Doxycycline 100 mg QD for chronic suppression - Rx refilled (4) Seborrheic dermatitis: Code(s): L21.9 - Seborrheic dermatitis, unspecified Plan: Continue Betamethasone dipropionate 0.05% lotion QD PRN - Rx refilled (5) Vitamin D deficiency: Code(s): E55.9 - Vitamin D deficiency, unspecified Plan: Patient is also advised that his Vitamin D level was low when checked last year and was recommended to start taking Vitamin D3 2000 units QD previously but it appears that he has not been taking it Will start him on Vitamin D3 2000 units QD - Rx sent (6) Pruritus: Code(s): L29.9 - Pruritus, unspecified Plan: He complains of recurrent itching of his lower legs lately but no rash or lesions are noted at present Suspect that this may be due to dry skin (dermatitis), which is not uncommon at this time as we head into the cold and dry winter months Will start him for now on Lac Hydrin 12% lotion tp apply to both lower legs BID to TID PRN (7) Overweight (BMI 25.0-29.9): Code(s): E66.3 - Overweight Plan: Reinforced diet/exercise as tolerated/lose weight Plan Follow up in 6 months Orders: Orders Complete Blood Count Auto Diff Today Z00.00 - Encounter for general adult medical examination without abnormal findings TSH reflex Free T4 Today E78.00 - Pure hypercholesterolemia, unspecified, Z00.00 - Encounter for general adult medical examination without abnormal findings Vitamin D 25-OH Total Today E55.9 - Vitamin D deficiency, unspecified, Z00.00 - Encounter for general adult medical examination without abnormal findings Comprehensive [place]. Panel Fast Today Z00.00 - Encounter for general adult medical examination without abnormal findings Lipid Panel Today E78.00 - Pure hypercholesterolemia, unspecified, Z00.00 - Encounter for general adult medical examination without abnormal findings UA CC w/rflx Micro + Cult Today R30.0 - Dysuria, Z00.00 - Encounter for general adult medical examination without abnormal findings Medications: New cholecalciferol (vitamin D3) 50 mcg PO DAILY 90 days 90 caps 3RF E55.9 - Vitamin D deficiency, unspecified ammonium lactate 12% apply to lower legs bilaterally PRN to help with recurrent itching / dry skin 1 appl topical BID-TID PRN 225 grams 3RF dry skin Changed From doxycycline hyclate 100 mg PO DAILY To doxycycline hyclate 100 mg PO DAILY 90 days 90 caps 1RF Refilled betamethasone dipropionate 0.05% 1 appl topical DAILY 60 mL 3RF L21.9 - Seborrheic dermatitis, unspecified Coding Level of Care Code Est Pt Prev Care 40-64y([id number]) Diagnoses Annual physical exam Z00.00 Pure hypercholesterolemia E78.00 Hidradenitis suppurativa L73.2 Seborrheic dermatitis L21.9 Vitamin D deficiency E55.9 Pruritus L29.9 Overweight (BMI 25.0-29.9) E66.3
== END 2023-04-12 17:48 | disposition home or self-care (01) ==
PROVIDERS: Visit Provider Internal Medicine
DX: Z00.00 Encounter for general adult medical examination without abnormal findings (principal); E78.00 Pure hypercholesterolemia, unspecified; L73.2 Hidradenitis suppurativa; L21.9 Seborrheic dermatitis, unspecified; E55.9 Vitamin D deficiency, unspecified; L29.9 Pruritus, unspecified; E66.3 Overweight
CPT/HCPCS: 99396

== ENCOUNTER 2023-04-13 14:07 | Outpatient (REF) | payer OTHER, SELFPAY ==
[2023-04-13 14:16] LABS: MANUAL DIFF FLAG NO
[2023-04-13 14:57] LABS: Appearance Urine Clear; Color Urine Yellow; Glucose Urine UA Negative (Negative); Leukocyte Esterase Urine Negative (Negative); Nitrite Urine Negative (Negative); PH 5.5 (5.0-9.0); Specific Gravity - Urine 1.025 (1.005-1.025); UMIC TRIGGER UACC YES; Urine Blood Small (1+) (Negative); Urine Ketones Negative (Negative); Urine Protein Negative (Neg-Trace)
[2023-04-13 14:58] LABS: Basophils Absolute Auto 0.1 X10*3/uL (0.0-0.2); Basophils Percent Auto 0.7 % (0-2); Eosinophils Absolute Auto 0.2 X10*3/uL (0.0-0.4); Eosinophils Percent Auto 2.4 % (0-4); Hematocrit 43.7 % (42.0-52.0); Hemoglobin 14.5 g/dl (14.0-18.0); Imm Gran Abs Auto 0.03 X10*3/uL (0.00-0.03); Imm Gran Pct Auto 0.3 % (0.0-0.4); Lymphocytes Absolute Auto 2.8 X10*3/uL (1.2-4.9); Lymphocytes Percent Auto 30.8 % (20-40); Mean Corpuscular HGB Conc 33.2 g/dl (31.0-36.0); Mean Corpuscular Hemoglobin 30.3 pg (27.0-33.0); Mean Corpuscular Volume 91.4 fL (80.0-98.0); Mean Platelet Volume 9.4 fL (9.4-12.4); Monocytes Absolute Auto 0.7 X10*3/uL (0.1-1.2); Monocytes Percent Auto 7.7 % (2-11); Neutrophils Absolute Auto 5.3 x10*3/uL (2.0-8.3); Neutrophils Percent Auto 58.1 % (45-73); Platelet Count 207 X10*3/uL (160-400); Red Blood Count 4.78 X10*6/uL (4.60-5.80); Red Cell Distribution Width 12.8 % (11.0-16.0); White Blood Count 9.1 X10*3/uL (4.8-10.8)
[2023-04-13 15:05] LABS: Bacteria Urine None Seen (None Seen); Hyaline Casts Urine 0-2 /LPF (0-2); Squamous Epithelial Cell Urine 0-2 /HPF (0-2); WBC Urine 0-5 /HPF (0-5)
[2023-04-13 15:38] LABS: Cortisol Random 12.4 ug/dL
[2023-04-13 15:39] LABS: Alanine Aminotransferase 21 U/L (0-40); Alkaline Phosphatase 118 U/L (39-117); Anion Gap 10 (12-20); Aspartate Amino Transferase 13 U/L (5-37); Bilirubin Total 0.7 mg/dL (0.0-1.0); Blood Urea Nitrogen 14 mg/dL (9-16); C Reactive Protein 0.82 mg/dL (< or = 0.50); Carbon Dioxide 23 mmol/L (22-29); Chloride 108 mmol/L (96-108); Cholesterol 195 mg/dL (<200); Estimated Glomerular Filt Rate > 60; Glucose Fasting 84 mg/dL (60-99); HDL Cholesterol 23 mg/dL (>40); LDL Cholesterol Calculated 143 mg/dL (<100); Potassium 3.9 mmol/L (3.3-5.1); Sodium 137 mmol/L (135-145); Total Protein 6.9 g/dL (6.5-8.0); Triglycerides 149 mg/dL (<150)
[2023-04-13 15:40] LABS: Insulin 12 uU/mL (2-29); TSH reflex Free T4 1.43 uIU/mL (0.32-4.0); Vitamin D 25-OH Total 9.8 ng/mL (>30)
[2023-04-13 16:09] LABS: Erythrocyte Sedimentation Rate 14 MM/HR (0-15)
== END 2023-04-13 14:08 | disposition home or self-care (01) ==
LOC: HO.LAB 14:07
PROVIDERS: PCP Internal Medicine; Visit Provider Internal Medicine
DX: Z00.00 Encounter for general adult medical examination without abnormal findings (principal); L73.2 Hidradenitis suppurativa; E55.9 Vitamin D deficiency, unspecified; M79.7 Fibromyalgia; E78.00 Pure hypercholesterolemia, unspecified
CPT/HCPCS: 36415; 80053; 80061; 81001; 82306; 82533; 83525; 84443; 85025; 85652; 86140